=== PATIENT | female | born 1985 | race Caucasian/White ===

== ENCOUNTER 2019-10-05 08:33 | Emergency (ER) | payer OTHER ==
[~2019-10-05] VITALS: Ht 170.2 cm; Wt 97.5 kg
[2019-10-05] MEDS ORDERED: METH4TAB2 PO (08:59)
[2019-10-05] MEDS ORDERED: HYDR25CA PO (08:59)
--- NOTE | 2019-10-05 08:59 | PHYS DOC ---
Adult General Chief Complaint Chief Complaint: SKIN PROBLEM HPI HPI Patient is a 34-year-old female who presents with complaint of rash over the last several days that has developed on the inner aspects of her arms as well as her flank areas. She states that she believes that the rash is likely to be due to being exposed to chemicals at work. 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 She is not sure if that may be the zinc or if it could be the oil within the parts. Patient states that she has been using some hydrocortisone cream for the itching and Benadryl but states that symptoms have just not gotten any better.[] Review of Systems Review of Systems Constitutional: Denies fever or chills [] Respiratory: Denies cough or shortness of breath [] Cardiovascular: No additional information not addressed in HPI [] Integument: Positive rash[] Neurologic: Denies headache, focal weakness or sensory changes [] Allergies Allergies Allergies Coded Allergies Type Severity Reaction Last Updated Verified Sulfa (Sulfonamide Antibiotics) Allergy Unknown 10/05/19 Yes Physical Exam Physical Exam Constitutional: Well developed, well nourished, no acute distress, non-toxic appearance. [] Neck: Normal range of motion, no tenderness, supple, no stridor. [] Cardiovascular:Heart rate regular rhythm, no murmur [] Lungs & Thorax: Bilateral breath sounds clear to auscultation [] Skin: There is a fine, nearly confluent, erythematous rash noted to the inner aspects of both arms as well as to the bilateral flank region. Numerous excoriations are noted from scratching. [] Neurologic: Alert and oriented X 3, no focal deficits noted. [] EKG EKG [] Radiology/Procedures Radiology/Procedures [] Course & Med Decision Making Course & Med Decision Making Pertinent Labs and Imaging studies reviewed. (See chart for details) [] Dragon Disclaimer Dragon Disclaimer This electronic medical record was generated, in whole or in part, using a voice recognition dictation system. Departure Departure: Impression: Primary Impression: Contact dermatitis Disposition: HOME, SELF-CARE Condition: STABLE Referrals: PCP,NO (PCP) Patient Instructions: Contact Dermatitis Scripts Hydroxyzine Pamoate (VISTARIL) 25 Mg Capsule 1 CAP PO Q6HRS PRN for RASH, #30 CAP 1 Refill Prov: LILLIAN ARRIETA Jr. DO 10/05/19 Methylprednisolone (MEDROL) 4 Mg Tab.ds.pk 1 PKG PO UD for inflammation, #1 PKG Prov: LILLIAN ARRIETA Jr. DO 10/05/19 Problem Qualifiers Primary Impression: Contact dermatitis Contact dermatitis type: unspecified Contact dermatitis trigger: other chemical product Qualified Codes: L25.3 - Unspecified contact dermatitis due to other chemical products LILLIAN ARRIETA Jr. DO Oct 05, 2019 08:59
[2019-10-05 09:10] VITALS: BP 118/80
== END 2019-10-05 09:07 | disposition home or self-care (01) ==
LOC: ER 08:33
DX: L25.3 Unspecified contact dermatitis due to other chemical products (principal); Z88.2 Allergy status to sulfonamides
CPT/HCPCS: 99283

== ENCOUNTER 2019-10-19 12:40 | Emergency (ER) | payer OTHER ==
[~2019-10-19] VITALS: Ht 177.8 cm; Wt 99.0 kg
[~2019-10-19 12:40] MED LIST: HYDR25CA PO; METH4TAB2 PO
[2019-10-19] MEDS ORDERED: diphenhydrAMINE HCL 25 MG CAPSULE PO ONE (13:00)
[2019-10-19] MEDS ORDERED: methylPREDNISolone SOD SUCC PF 125 MG/2 ML VIAL. IM ONE (13:00)
--- NOTE | 2019-10-19 13:20 | PHYS DOC ---
Past History Past Medical History: Anxiety, Depression Past Surgical History: No Surgical History Alcohol Use: None Adult General Chief Complaint Chief Complaint: SKIN RASH/ABSCESS HPI HPI 34-year-old female presents with rash. The patient had a similar rash a few weeks ago and was treated with steroids of hydroxyzine. Her rash completely resolved. She stopped taking a new medication when she got the rash the first time in case that was the cause. She has been back to work the last few days and the rash showed up again yesterday. It is small red dots and intensely pruritic. The rash is much worse on exposed areas such as her arms and neck area. She has some rash around her waistline where she would reach to just her pants while w earing her work gloves. She believes that is some tonic chemical that she is coming in contact with at work. Her only other known allergy is to sulfa antibiotics. Review of Systems Review of Systems Constitutional: Denies fever or chills [] Eyes: Denies change in visual acuity, redness, or eye pain [] HENT: Denies nasal congestion or sore throat [] Respiratory: Denies cough or shortness of breath [] Cardiovascular: No additional information not addressed in HPI [] GI: Denies abdominal pain, nausea, vomiting, bloody stools or diarrhea [] : Denies dysuria or hematuria [] Musculoskeletal: Denies back pain or joint pain [] Integument: Rash [] Neurologic: Denies headache, focal weakness or sensory changes [] Endocrine: Denies polyuria or polydipsia [] All other systems were reviewed and found to be within normal limits, except as documented in this note. Current Medications Current Medications Current Medications Medications (Trade) Dose Ordered Sig/Lisa Start Time Stop Time Status Last Admin Dose Admin Diphenhydramine HCl (Benadryl) 25 mg 1X ONCE 10/19/19 13:00 10/19/19 13:01 DC Methylprednisolone Sodium Succinate (SOLU-Medrol 125MG VIAL) 125 mg 1X ONCE 10/19/19 13:00 10/19/19 13:01 DC Allergies Allergies Allergies Coded Allergies Type Severity Reaction Last Updated Verified Sulfa (Sulfonamide Antibiotics) Allergy Unknown 10/05/19 Yes Physical Exam Physical Exam Constitutional: Well developed, well nourished, no acute distress, non-toxic appearance. [] HENT: Normocephalic, atraumatic, bilateral external ears normal, oropharynx m oist, no oral exudates, nose normal. [] Eyes: PERRLA, EOMI, conjunctiva normal, no discharge. [] Neck: Normal range of motion, no tenderness, supple, no stridor. [] Cardiovascular:Heart rate regular rhythm, no murmur [] Lungs & Thorax: Bilateral breath sounds clear to auscultation [] Abdomen: Bowel sounds normal, soft, no tenderness, no masses, no pulsatile masses. [] Skin: Small erythematous papules mostly on the upper arms, neck, and waistline. Appears consistent with contact dermatitis.[] Back: No tenderness, no CVA tenderness. [] Extremities: No tenderness, no cyanosis, no clubbing, ROM intact, no edema. [] Neurologic: Alert and oriented X 3, normal motor function, normal sensory function, no focal deficits noted. [] Psychologic: Affect normal, judgement normal, mood normal. [] EKG EKG [] Radiology/Procedures Radiology/Procedures [] Course & Med Decision Making Course & Med Decision Making Pertinent Labs and Imaging studies reviewed. (See chart for details) I will give the patient 125 Solu-Medrol in the ED as well as 25 mg of Benadryl by mouth. We'll discharge her with a steroid taper and hydroxyzine. She is stable for discharge at this time. [] Dragon Disclaimer Dragon Disclaimer This electronic medical record was generated, in whole or in part, using a voice recognition dictation system. Departure Departure: Impression: Primary Impression: Contact dermatitis Disposition: HOME, SELF-CARE Condition: STABLE Referrals: PCP,NO (PCP) Patient Instructions: Contact Dermatitis, [id number] Scripts Hydroxyzine Hcl (HYDROXYZINE HCL) 25 Mg Tablet 1 TAB PO TID PRN for ITCHING, #30 TAB Prov: MONIQUE CAMPOS DO 10/19/19 Prednisone (PREDNISONE) 10 Mg Tablet 10 MG PO UD for PREDNISONE TAPER, #27 TAB 0 Refills Take 4 tablets by mouth daily for 3 days, then take 3 tablets by mouth daily for 3 days, then take 2 tablets by mouth daily for 2 days, then take 1 tablet by mouth daily for 2 days, then stop. Prov: MONIQUE CAMPOS DO 10/19/19 Problem Qualifiers Primary Impression: Contact dermatitis Contact dermatitis type: allergic Contact dermatitis trigger: other chemical product Qualified Codes: L23.5 - Allergic contact dermatitis due to other chemical products MONIQUE CAMPOS DO Oct 19, 2019 13:20
[2019-10-19 13:21] VITALS: BP 125/83
[2019-10-19] MEDS ORDERED: PRED-220 PO (13:32)
[2019-10-19] MEDS ORDERED: HYDR25TA PO (13:33)
== END 2019-10-19 13:40 | disposition home or self-care (01) ==
LOC: ER 12:40
DX: L23.5 Allergic contact dermatitis due to other chemical products (principal); Z88.2 Allergy status to sulfonamides
CPT/HCPCS: 96372; 99283; J2930; Q0163